=== PATIENT | female | born 2000 | race Caucasian/White ===

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

== ENCOUNTER 2024-01-05 21:40 | Inpatient (IN) | payer OTHER ==
[2024-01-05] MEDS ORDERED: ONDANSETRON 4 MG/2 ML VIAL ONE (22:35)
[2024-01-05 22:39] LABS: BASO % 0.6 % (0-2.0); EOS % 1.9 % (0-4.5); HEMATOCRIT 36.2 % (32.4-45.2); HEMOGLOBIN 12.3 GM/dL (10.7-15.3); LYMPH % 16.5 % (8-40); MCHC 34.1 g/dl (32.0-36.0); MEAN CELL VOLUME 87.9 fl (80-96); MEAN PLT VOLUME 7.6 fl (7.5-11.1); MONO % 9.6 % (3.8-10.2); NEUT % 71.4 % (42.8-82.8); PLATELET COUNT 317 10^3/uL (134-434); RBC 4.12 M/mm3 (3.60-5.2); RDW 13.4 % (11.6-15.6); WHITE BLOOD COUNT 8.3 K/mm3 (4.0-10.0)
[2024-01-05] MEDS: ONDANSETRON 4 MG/2 ML VIAL IVPUSH ONE (22:42)
[2024-01-05 22:46] LABS: EPI CELLS 12 /uL (0-25.1); HYALINE CASTS 0 /uL (0-3.1); URINE APPEARANCE CLEAR; URINE BACTERIA 1 /uL (0-1359); URINE BILIRUBIN NEGATIVE (NEGATIVE); URINE COLOR RED; URINE GLUCOSE (UA) NEGATIVE (NEGATIVE); URINE KETONE NEGATIVE (NEGATIVE); URINE LEUK ESTERASE 1+ (NEGATIVE); URINE NITRITE NEGATIVE (NEGATIVE); URINE PROTEIN TRACE (NEGATIVE); URINE RBC 8403 /uL (0-23.9); URINE UROBILINOGEN 0.2 mg/dL (0.2-1.0); URINE WBC 28 /uL (0-25.8)
[2024-01-05 22:47] LABS: HCG,QUALITATIVE URINE Negative
[2024-01-05 23:18] LABS: ALBUMIN 3.5 g/dl (3.4-5.0); BLOOD UREA NITROGEN 10.2 mg/dL (7-18); MAGNESIUM 2.3 mg/dL (1.8-2.4)
[2024-01-05 23:21] LABS: CREATININE 0.5 mg/dL (0.55-1.3); TOT PROT 6.8 g/dl (6.4-8.2)
[2024-01-05 23:23] LABS: BILIRUBIN,TOTAL 0.5 mg/dL (0.2-1)
[2024-01-05] MEDS: SODIUM CHLORIDE 0.9% 1000 ML INFUS.BAG IV ONE (23:41)
[2024-01-05] MEDS ORDERED: ACETAMINOPHEN INJECTION 100 ML IVPB ONE (23:53)
[2024-01-06] MEDS: ACETAMINOPHEN 1000 MG/100 ML BAG IVPB ONE (00:03)
[2024-01-06] MEDS: morphine CARPU-JECT 4 MG/1 ML DISP.SYRIN IVPUSH ONE (01:33)
[2024-01-06 05:45] VITALS: BMI 27.6
[2024-01-06] MEDS: ONDANSETRON 4 MG/2 ML VIAL IVPUSH PRN (06:26)
[2024-01-06] MEDS: ACETAMINOPHEN 1000 MG/100 ML BAG IVPB PRN (06:26)
[2024-01-06 08:37] VITALS: RESP 18
[2024-01-06] MEDS: DEXTROSE 5%-0.45% SALINE 1,000 ML IV SCH (08:57)
[2024-01-06 09:12] LABS: INR 1.06 (0.83-1.09); PROTHROMBIN TIME (PATIENT) 12.3 SEC (9.7-13.0)
[2024-01-06 09:12] LABS: BASO % 0.8 % (0-2.0); EOS % 1.5 % (0-4.5); HEMOGLOBIN 12.5 GM/dL (10.7-15.3); LYMPH % 23.1 % (8-40); MCH 29.4 pg (25.7-33.7); MCHC 32.8 g/dl (32.0-36.0); MEAN CELL VOLUME 89.8 fl (80-96); MEAN PLT VOLUME 8.2 fl (7.5-11.1); MONO % 10.3 % (3.8-10.2); NEUT % 64.3 % (42.8-82.8); PLATELET COUNT 295 10^3/uL (134-434); RBC 4.23 M/mm3 (3.60-5.2); RDW 13.6 % (11.6-15.6); WHITE BLOOD COUNT 6.4 K/mm3 (4.0-10.0)
[2024-01-06 09:15] LABS: ACTIVATED PTT 37.4 SECONDS (25.2-36.5)
[2024-01-06 09:28] LABS: POTASSIUM 3.8 mmol/L (3.5-5.1)
[2024-01-06] MEDS: LEVOTHYROXINE NA 75 MCG TABLET (FP) PO SCH (09:28)
[2024-01-06 09:32] LABS: CALCIUM 8.6 mg/dL (8.5-10.1)
[2024-01-06 09:33] LABS: ALBUMIN 3.2 g/dl (3.4-5.0); BLOOD UREA NITROGEN 6.8 mg/dL (7-18)
[2024-01-06 09:36] LABS: CREATININE 0.5 mg/dL (0.55-1.3)
[2024-01-06 09:37] LABS: TOT PROT 6.3 g/dl (6.4-8.2)
[2024-01-06] MEDS ORDERED: IOHEXOL (OMNIPAQUE PO) 12 MG/ML - 500 ML BOTTLE PO ONE ×2 (12:02)
[2024-01-07 08:33] VITALS: BP 105/57; PULSE 58; TEMP 97.6
[2024-01-07 09:36] LABS: HEMATOCRIT 39.2 % (32.4-45.2); HEMOGLOBIN 12.9 GM/dL (10.7-15.3); MCH 29.6 pg (25.7-33.7); MCHC 32.9 g/dl (32.0-36.0); MEAN CELL VOLUME 89.9 fl (80-96); MEAN PLT VOLUME 7.9 fl (7.5-11.1); PLATELET COUNT 329 10^3/uL (134-434); RBC 4.36 M/mm3 (3.60-5.2); RDW 13.6 % (11.6-15.6); WHITE BLOOD COUNT 6.8 K/mm3 (4.0-10.0)
[2024-01-07 09:57] LABS: POTASSIUM 4.1 mmol/L (3.5-5.1)
[2024-01-07 10:00] LABS: CALCIUM 8.9 mg/dL (8.5-10.1); MAGNESIUM 2.2 mg/dL (1.8-2.4)
[2024-01-07 10:03] LABS: ALBUMIN 3.4 g/dl (3.4-5.0); CREATININE 0.6 mg/dL (0.55-1.3); PHOSPHOROUS 3.8 mg/dL (2.5-4.9)
[2024-01-07 10:04] LABS: BILIRUBIN,TOTAL 0.7 mg/dL (0.2-1); TOT PROT 6.6 g/dl (6.4-8.2)
== END 2024-01-07 13:00 | disposition home or self-care (01) | DRG 254 ==
LOC: JER 21:40 → JERBED 01-06 00:22 → OBSVTOIN 01-06 01:25 → J6S 01-06 05:39
PROVIDERS: ADMIT Student in an Organized Health Care Education/Training Program; ATTEND Internal Medicine
DX: K59.09 Other constipation (principal); R10.31 Right lower quadrant pain; E03.9 Hypothyroidism, unspecified; N92.1 Excessive and frequent menstruation with irregular cycle; R63.0 Anorexia; Z68.27 Body mass index [BMI] 27.0-27.9, adult
CPT/HCPCS: 36415; 74177-TC; 76775-TC; 76856-TC; 80053; 81003; 82533; 83735; 84100; 84439; 84443; 84703; 85025; 85027; 85610; 85730; 86850; 86900; 86901; 87086; 99285-25; G0378; J0131; Q9967